=== PATIENT | male | born 1960 | race Hispanic/Latino ===

== ENCOUNTER 2017-08-24 14:00 | Observation (INO) | payer OTHER ==
[~2017-08-24] VITALS: Ht 175.3 cm; Wt 87.8 kg
[2017-08-24 12:10] VITALS: BP 113/73
[~2017-08-24 14:00] MED LIST: NAPR-1023 PO; TRAM50TA4 PO
[2017-08-25] VITALS (22 sets, daily range): BP systolic 88–127; BP diastolic 60–88
[2017-08-25] MEDS ORDERED: CEFAZOLIN SODIUM 1 GM VIAL ONE (06:52)
[2017-08-25] MEDS ORDERED: LACTATED RINGERS 1000ML 1,000 ML IV ONE (06:53)
[2017-08-25] MEDS ORDERED: VANCOMYCIN 1.25 GM in SODIUM CHLORIDE 0.9% 250 ML IV SCH (07:00)
[2017-08-25] MEDS ORDERED: LIDOCAINE PF 2% 5ML ABBOJECT ONE (07:42)
[2017-08-25] MEDS ORDERED: GLYCOPYRROLATE 0.2 MG/ML 5 ML VIAL ONE (07:42)
[2017-08-25] MEDS ORDERED: DEXAMETHASONE SOD PHOSPHATE 10MG/ML 1ML VIAL ONE (07:42)
[2017-08-25] MEDS ORDERED: MIDAZOLAM HCL 1 MG/ML 2ML VIAL ONE (07:42)
[2017-08-25] MEDS ORDERED: ONDANSETRON HCL 4 MG/2 ML VIAL ONE (07:42)
[2017-08-25] MEDS ORDERED: PROPOFOL 10 MG/ML 20ML VIAL IV ONE (07:42)
[2017-08-25] MEDS ORDERED: ROPIVACAINE 0.5% 5MG/ML 30ML IJ ONE (07:52)
[2017-08-25] MEDS ORDERED: NEOSTIGMINE 5MG/5ML SYR IV ONE (09:17)
[2017-08-25] MEDS ORDERED: MEPERIDINE-PF 25 MG/ML SYG ONE ×2 (09:51→10:04)
[2017-08-25 10:24] LABS: HEMATOCRIT 37.3 % (42-54)
[2017-08-25] MEDS ORDERED: MORPHINE SULFATE 10 MG/ML 1ML SYG IM PRN (11:15)
[2017-08-25] MEDS ORDERED: BISACODYL 10 MG SUPP.RECT RC PRN (11:15)
[2017-08-25] MEDS ORDERED: PROMETHAZINE HCL 25 MG/ML 1ML AMPULE IM PRN (11:15)
[2017-08-25] MEDS ORDERED: DEXTROSE 5%-LACTATED RINGERS 1,000 ML IV SCH (11:15)
[2017-08-25] MEDS ORDERED: MAGNESIUM HYDROXIDE 30 ML/UDCUP PO PRN (11:15)
[2017-08-25] MEDS ORDERED: ACETAMINOPHEN 325 MG TAB PO PRN (11:15)
[2017-08-25] MEDS: CEFAZOLIN SODIUM 1 GM VIAL IVP SCH ×2 (13:44→21:09)
[2017-08-25 18:36] LABS: HEMATOCRIT 37.4 % (42-54)
[2017-08-25] MEDS ORDERED: MORPHINE SULFATE 2 MG/ML 1ML SYG ONE (21:05)
[2017-08-25] MEDS ORDERED: MORPHINE SULFATE 2 MG/ML 1ML SYG IVP PRN (21:15)
[2017-08-25] MEDS: TRAMADOL HCL 50 MG TABLET PO PRN (21:41)
[2017-08-25] MEDS ORDERED: KETOROLAC TROMETHAMINE 30MG/ML IV PRN (23:00)
[2017-08-25] MEDS ORDERED: KETOROLAC TROMETHAMINE 30MG/ML ONE (23:05)
[2017-08-26 01:21] LABS: HEMATOCRIT 39.2 % (42-54)
[2017-08-26 03:33] VITALS: BP 106/64
[2017-08-26] MEDS: CEFAZOLIN SODIUM 1 GM VIAL IVP SCH (05:04)
[2017-08-26 07:30] VITALS: BP 108/74
[2017-08-26] MEDS: TRAMADOL HCL 50 MG TABLET PO PRN (08:01)
[2017-08-26] MEDS ORDERED: FAMOTIDINE 20MG TAB 20 MG TAB PO SCH (09:00)
[2017-08-26] MEDS ORDERED: TRAM50TA2 PO (09:54)
[2017-08-26] MEDS ORDERED: DOCU-116 PO (09:56)
[2017-08-26 11:00] VITALS: BP 110/71
== END 2017-08-26 15:05 | disposition home or self-care (01) ==
LOC: EDBD 14:00 → EDSTATUS 14:00 → DAHIP 08-25 06:08 → 4BH 08-25 10:20
DX: M75.41 Impingement syndrome of right shoulder (principal); M77.9 Enthesopathy, unspecified; S46.011A Strain of muscle(s) and tendon(s) of the rotator cuff of right shoulder, initial encounter; X58.XXXA Exposure to other specified factors, initial encounter; Y93.89 Activity, other specified; Y92.89 Other specified places as the place of occurrence of the external cause; Y99.8 Other external cause status; Z88.0 Allergy status to penicillin; Z96.661 Presence of right artificial ankle joint; Z96.611 Presence of right artificial shoulder joint
CPT/HCPCS: 23120; 23130; 23410; 36415 ×3; 85014 ×4; 85018 ×4; 86850; 86900; 86901; 86922; 88304; 88311; 94760; 96365; 96366; 96375; 96376 ×2; 97116; 97161; A4218 ×3; A4606; A4930; A6223; C1713 ×2; G0378 ×34; G8978; G8979; G8980 ×2; G8981; G8982; G8983 ×2; J0690 ×4; J1100; J1885 ×2; J2001; J2175 ×2; J2250; J2405; J2704; J2710; J2795; J3370; J3490 ×2; J7030 ×2; J7120